=== PATIENT | female | born 1935 | race Caucasian/White ===

== ENCOUNTER 2018-01-18 21:41 | Inpatient (IN) | payer OTHER ==
[~2018-01-18] VITALS: Ht 160 cm; Wt 129.4 kg
[~2018-01-18 21:41] MED LIST: AVAPRO150 MG PO; CEFDINIR300 MG PO; FUROSEMIDE40 MG PO; LIPITOR10 MG PO; METOLAZONE5 MG PO; NORCO 5/3251 TABLET PO; TRAMADOL HCL50 MG PO; TYLENOL REGULA325 MG PO
[2018-01-18 22:51] LABS: INTER. NORMALIZED RATIO 1.5; PTT 28.7 SEC (25-37)
[2018-01-18 22:52] LABS: ALBUMIN 3.1 g/dL (3.2-4.8); CHLORIDE 106 mEq/L (99-109); HEMATOCRIT 16.1 % (36.0-46.0); HEMOGLOBIN 4.6 G/DL (11.9-15.5); MCH 20.4 PG (29.0-34.0); MCHC 28.6 G/DL (30.0-36.0); MCV 71.2 FL (83-99); NRBC (%) 2.8 /100 WBC (0-0); PLATELET COUNT 179 K/uL (156-360); RBC DIS.WIDTH-CV 21.3 % (11.8-14.6); RED BLOOD COUNT 2.26 M/uL (3.80-5.20); SODIUM 137 mEq/L (136-147); WHITE BLOOD COUNT 5.4 K/uL (4.1-10.2)
[2018-01-18 22:54] LABS: GLUCOSE 93 mg/dL (70-99); TOTAL PROTEIN 6.1 g/dL (6.4-8.3)
[2018-01-18 22:56] LABS: TOTAL BILIRUBIN 0.3 mg/dL (0.0-1.0)
[2018-01-18 22:58] LABS: ALKALINE PHOSPHATASE 76 IU/L (3-129); CREATININE 5.4 mg/dL (0.6-1.3); GFR ESTIMATE (CALCULATED) 8 mL/min/
[2018-01-18 22:59] LABS: UREA NITROGEN (BUN) 81 mg/dL (9-23)
[2018-01-18 23:00] LABS: AST (GOT) 18 IU/L (2-34)
[2018-01-18 23:01] LABS: ALT (GPT) 16 IU/L (3-49)
[2018-01-18 23:03] LABS: TROP-I INTERPRETATION NEGATIVE; TROPONIN-I 0.02 ng/mL (0.0-0.30)
[2018-01-18 23:15] LABS: POTASSIUM 6.4 mEq/L (3.7-5.4)
[2018-01-19] VITALS (19 sets, daily range): BP systolic 76–127; BP diastolic 38–88
[2018-01-19 00:08] LABS: HEMATOCRIT 16.3 % (36.0-46.0); HEMOGLOBIN 4.6 G/DL (11.9-15.5); MCH 20.4 PG (29.0-34.0); MCHC 28.2 G/DL (30.0-36.0); MCV 72.1 FL (83-99); NRBC (%) 2.9 /100 WBC (0-0); PLATELET COUNT 190 K/uL (156-360); RBC DIS.WIDTH-CV 21.4 % (11.8-14.6); RBC DIS.WIDTH-SD 55.4 % (39-53); RED BLOOD COUNT 2.26 M/uL (3.80-5.20); WHITE BLOOD COUNT 5.8 K/uL (4.1-10.2)
[2018-01-19 05:37] LABS: CHLORIDE 109 mEq/L (99-109); SODIUM 137 mEq/L (136-147)
[2018-01-19 05:43] LABS: CREATININE 5.1 mg/dL (0.6-1.3); GFR ESTIMATE (CALCULATED) 9 mL/min/
[2018-01-19 05:44] LABS: UREA NITROGEN (BUN) 78 mg/dL (9-23)
[2018-01-19 05:46] LABS: GLUCOSE 49 mg/dL (70-99); POTASSIUM 6.1 mEq/L (3.7-5.4)
[2018-01-19 05:56] LABS: HEMATOCRIT 21.3 % (36.0-46.0); HEMOGLOBIN 6.3 G/DL (11.9-15.5); MCH 22.5 PG (29.0-34.0); MCHC 29.6 G/DL (30.0-36.0); MCV 76.1 FL (83-99); NRBC (%) 1.5 /100 WBC (0-0); PLATELET COUNT 160 K/uL (156-360); RBC DIS.WIDTH-CV 21.5 % (11.8-14.6); RBC DIS.WIDTH-SD 59.7 % (39-53); WHITE BLOOD COUNT 5.4 K/uL (4.1-10.2)
[2018-01-19 06:41] LABS: APPEARANCE TURBID ((CLEAR)); BILIRUBIN NEGATIVE; BLOOD NEGATIVE; COLOR AMBER ((YELLOW)); GLUCOSE (STRIP) NEGATIVE; KETONES NEGATIVE; LEUKOCYTES NEGATIVE; NITRITE NEGATIVE; PROTEIN (STRIP) >=500; SPECIFIC GRAVITY 1.024 (1.000-1.030); UROBILINOGEN 0.2 MG/DL (0.2-1.0)
[2018-01-19 06:59] LABS: AMORPHOUS URATES CRYSTALS 2+; BACTERIA 2+ /HPF; CALCIUM OXALATE CRYSTALS 1+ /HPF; EPITHELIAL CELLS 2+ /HPF; MUCUS NONE SEEN /LPF; RED BLOOD CELLS NONE SEEN /HPF (0-5); UCUL ADDED? YES; WHITE BLOOD CELLS 0-5 /HPF (0-5)
[2018-01-19 08:30] LABS: THYROTROPIN (TSH) 2.1 MIU/L (0.4-5.5)
[2018-01-19] MEDS ORDERED: LO-DOSE ASPIRIN81 M2 PO (09:04)
[2018-01-19] MEDS ORDERED: COREG25 M1 PO (09:05)
[2018-01-19] MEDS ORDERED: BACTRIM,SEPT1 TABLET PO (09:06)
[2018-01-19] MEDS ORDERED: METOLAZONE10 MG PO (09:07)
[2018-01-19] MEDS ORDERED: PROAIR HFA8.5 GM IH (09:22)
[2018-01-19] MEDS ORDERED: EXTRA STRENGTH500 M1 PO (09:22)
[2018-01-19] MEDS ORDERED: SALONPAS PATCH1 EAC1 TD (09:22)
[2018-01-19 13:34] LABS: MCV 77.8 FL (83-99)
[2018-01-19 13:41] LABS: HEMOGLOBIN 8.5 G/DL (11.9-15.5)
[2018-01-19 13:51] LABS: CHLORIDE 104 MEQ/L (99-109); CREATININE 5.1 MG/DL (0.6-1.3); GFR ESTIMATE (CALCULATED) 9 mL/min/; POTASSIUM 5.6 MEQ/L (3.7-5.4); SODIUM 134 MEQ/L (136-147); UREA NITROGEN (BUN) 79 mg/dL (9-23)
[2018-01-19 13:59] LABS: GLUCOSE 124 mg/dL (70-99)
[2018-01-19 18:26] LABS: CHLORIDE 103 MEQ/L (99-109); CREATININE 4.9 MG/DL (0.6-1.3); GFR ESTIMATE (CALCULATED) 9 mL/min/; GLUCOSE 135 mg/dL (70-99); POTASSIUM 5.2 MEQ/L (3.7-5.4); SODIUM 134 MEQ/L (136-147); UREA NITROGEN (BUN) 76 mg/dL (9-23)
[2018-01-19 19:47] LABS: UR CREATININE CONCENTRATION 117.6 MG/DL
[2018-01-20] VITALS (11 sets, daily range): BP systolic 88–138; BP diastolic 50–91
[2018-01-20 04:49] LABS: HEMATOCRIT 27.6 % (36.0-46.0); HEMOGLOBIN 8.6 G/DL (11.9-15.5); MCH 23.9 PG (29.0-34.0); MCHC 31.2 G/DL (30.0-36.0); MCV 76.7 FL (83-99); NRBC (%) 1.2 /100 WBC (0-0); PLATELET COUNT 180 K/uL (156-360); RBC DIS.WIDTH-SD 58.2 % (39-53); WHITE BLOOD COUNT 7.7 K/uL (4.1-10.2)
[2018-01-20 04:54] LABS: BASOPHIL (%) 0.1 % (0-1); EOSINOPHIL (%) 0.3 % (0-5); IMMATURE GRANULOCYTE (%) 0.4 % (0.0-0.7); LYMPHOCYTE (%) 8.2 % (15-42); LYMPHOCYTE COUNT 0.6 K/uL (1.0-2.8); MONOCYTE (%) 5.2 % (3-12); MONOCYTE COUNT 0.4 K/uL (0-0.8); NEUTROPHIL (%) 85.8 % (45-76); NEUTROPHIL COUNT 6.6 K/uL (1.8-6.4)
[2018-01-20 05:00] LABS: CHLORIDE 104 mEq/L (99-109); POTASSIUM 5.9 mEq/L (3.7-5.4); SODIUM 137 mEq/L (136-147)
[2018-01-20 05:03] LABS: GLUCOSE 94 mg/dL (70-99)
[2018-01-20 05:06] LABS: CREATININE 5.5 mg/dL (0.6-1.3); GFR ESTIMATE (CALCULATED) 8 mL/min/
[2018-01-20 05:07] LABS: UREA NITROGEN (BUN) 86 mg/dL (9-23)
[2018-01-20 17:37] LABS: CHLORIDE 102 MEQ/L (99-109); CREATININE 5.3 MG/DL (0.6-1.3); GFR ESTIMATE (CALCULATED) 8 mL/min/; GLUCOSE 76 mg/dL (70-99); SODIUM 140 MEQ/L (136-147); UREA NITROGEN (BUN) 85 mg/dL (9-23)
[2018-01-20 17:38] LABS: POTASSIUM 4.3 MEQ/L (3.7-5.4)
[2018-01-21] VITALS (11 sets, daily range): BP systolic 87–136; BP diastolic 60–92
[2018-01-21 05:45] LABS: CHLORIDE 102 MEQ/L (99-109); CREATININE 5.1 MG/DL (0.6-1.3); GFR ESTIMATE (CALCULATED) 9 mL/min/; GLUCOSE 59 mg/dL (70-99); POTASSIUM 3.7 MEQ/L (3.7-5.4); SODIUM 141 MEQ/L (136-147); UREA NITROGEN (BUN) 80 mg/dL (9-23)
[2018-01-22] VITALS (13 sets, daily range): BP systolic 98–155; BP diastolic 51–85
[2018-01-22 05:19] LABS: HEMATOCRIT 29.1 % (36.0-46.0); HEMOGLOBIN 8.9 G/DL (11.9-15.5); MCH 23.3 PG (29.0-34.0); MCHC 30.6 G/DL (30.0-36.0); MCV 76.2 FL (83-99); NRBC (%) 1.2 /100 WBC (0-0); PLATELET COUNT 167 K/uL (156-360); RED BLOOD COUNT 3.82 M/uL (3.80-5.20); WHITE BLOOD COUNT 10.4 K/uL (4.1-10.2)
[2018-01-22 05:54] LABS: ALBUMIN 3.3 G/DL (3.2-4.8); CHLORIDE 100 MEQ/L (99-109); CREATININE 4.6 MG/DL (0.6-1.3); GFR ESTIMATE (CALCULATED) 10 mL/min/; GLUCOSE 59 mg/dL (70-99); PHOSPHORUS 6.5 mg/dL (2.5-4.9); SODIUM 141 MEQ/L (136-147); UREA NITROGEN (BUN) 76 mg/dL (9-23)
[2018-01-22 05:56] LABS: POTASSIUM 2.7 MEQ/L (3.7-5.4)
[2018-01-22 08:17] LABS: MAGNESIUM 1.9 mg/dl (1.3-2.7)
[2018-01-23] VITALS (31 sets, daily range): BP systolic 47–171; BP diastolic 29–98
[2018-01-23 00:54] LABS: HEMATOCRIT 25.5 % (36.0-46.0)
[2018-01-23 06:11] LABS: BASE EXCESS -7.1 mEq/L (-3 to +3); BICARBONATE 18.7 mEq/L (22-26); PCO2 38 mm Hg (35-45); PO2 95 mm Hg (80-100)
[2018-01-23 06:12] LABS: DEVICE VENT; FI02 100 %; MECHANICAL RATE 18 resp/min; MODE ACVC; PEEP 5 CM/H20; SITE RFEM; TIDAL VOLUME 450 ML; TOTAL RESP RATE 18 resp/min
[2018-01-23 06:26] LABS: HEMATOCRIT 20.3 % (36.0-46.0)
[2018-01-23 06:33] LABS: HEMOGLOBIN 5.8 G/DL (11.9-15.5); MCV 81.2 FL (83-99)
[2018-01-23 06:37] LABS: ALBUMIN 2.3 G/DL (3.2-4.8); CHLORIDE 107 MEQ/L (99-109); CREATININE 4.3 MG/DL (0.6-1.3); GFR ESTIMATE (CALCULATED) 10 mL/min/; GLUCOSE 69 mg/dL (70-99); PHOSPHORUS 6.9 mg/dL (2.5-4.9); SODIUM 145 MEQ/L (136-147); UREA NITROGEN (BUN) 76 mg/dL (9-23)
[2018-01-23 06:38] LABS: POTASSIUM 4.2 MEQ/L (3.7-5.4)
[2018-01-23 07:01] LABS: INTER. NORMALIZED RATIO 1.6
[2018-01-23 07:04] LABS: PTT 32.1 SEC (25-37)
[2018-01-23 08:49] LABS: APPEARANCE CLOUDY ((CLEAR)); BILIRUBIN NEGATIVE; BLOOD MODERATE; COLOR YELLOW ((YELLOW)); GLUCOSE (STRIP) NEGATIVE; KETONES NEGATIVE; LEUKOCYTES MODERATE; NITRITE NEGATIVE; PROTEIN (STRIP) 30; SPECIFIC GRAVITY 1.011 (1.000-1.030); UROBILINOGEN 0.2 MG/DL (0.2-1.0)
[2018-01-23 09:04] LABS: RED BLOOD CELLS 0-5 /HPF (0-5)
[2018-01-23 09:06] LABS: BACTERIA 1+ /HPF; EPITHELIAL CELLS RARE /HPF; MUCUS NONE SEEN /LPF; UCUL ADDED? YES
[2018-01-23 09:07] LABS: COARSE GRANULAR CASTS 0-5 /LPF; HYALINE CASTS RARE /LPF
[2018-01-23 09:08] LABS: AMORPHOUS URATES CRYSTALS 2+
[2018-01-23 09:23] LABS: BASE EXCESS -4.9 mEq/L (-3 to +3); BICARBONATE 18.2 mEq/L (22-26)
[2018-01-23 09:24] LABS: DEVICE VENT; FI02 100 %; MECHANICAL RATE 18 resp/min; MODE AC; PCO2 28 mm Hg (35-45); PEEP 5 CM/H20; PO2 441 mm Hg (80-100); SITE ALINE; TIDAL VOLUME 450 ML; TOTAL RESP RATE 18 resp/min; pH 7.42 (7.35-7.45)
[2018-01-23 12:43] LABS: BASOPHIL (%) 0.1 % (0-1); EOSINOPHIL (%) 0.1 % (0-5); HEMATOCRIT 17.8 % (36.0-46.0); IMMATURE GRANULOCYTE (%) 1.1 % (0.0-0.7); LYMPHOCYTE (%) 4.8 % (15-42); LYMPHOCYTE COUNT 0.5 K/uL (1.0-2.8); MCH 27.3 PG (29.0-34.0); MCHC 33.1 G/DL (30.0-36.0); MCV 82.4 FL (83-99); MONOCYTE (%) 7.8 % (3-12); MONOCYTE COUNT 0.8 K/uL (0-0.8); NEUTROPHIL (%) 86.1 % (45-76); NEUTROPHIL COUNT 8.9 K/uL (1.8-6.4); NRBC (%) 5.3 /100 WBC (0-0); RBC DIS.WIDTH-CV 17.7 % (11.8-14.6); RBC DIS.WIDTH-SD 53.7 % (39-53); WHITE BLOOD COUNT 10.3 K/uL (4.1-10.2)
[2018-01-23 12:45] LABS: HEMOGLOBIN 5.9 G/DL (11.9-15.5); RED BLOOD COUNT 2.16 M/uL (3.80-5.20)
[2018-01-23 13:00] LABS: INTER. NORMALIZED RATIO 1.6
[2018-01-23 13:02] LABS: ANISOCYTOSIS 1+; HYPOCHROMASIA 1+; IMM.PLATELET FRACTION 3.6 (1-7); MICROCYTOSIS 1+; PLAT.SUFFICIENCY DECREASED; PLATELET COUNT 52 K/uL (156-360)
[2018-01-23 13:03] LABS: PTT 38.3 SEC (25-37)
[2018-01-23 14:37] LABS: BASOPHIL (%) 0.3 % (0-1); EOSINOPHIL (%) 0.1 % (0-5); HEMOGLOBIN 10.2 G/DL (11.9-15.5); IMMATURE GRANULOCYTE (%) 1.4 % (0.0-0.7); LYMPHOCYTE COUNT 0.8 K/uL (1.0-2.8); MCH 29.1 PG (29.0-34.0); MCHC 32.9 G/DL (30.0-36.0); MCV 88.6 FL (83-99); MONOCYTE (%) 10.4 % (3-12); MONOCYTE COUNT 1.3 K/uL (0-0.8); NEUTROPHIL (%) 80.8 % (45-76); NEUTROPHIL COUNT 9.7 K/uL (1.8-6.4); NRBC (%) 8.1 /100 WBC (0-0); RBC DIS.WIDTH-CV 15.7 % (11.8-14.6); RBC DIS.WIDTH-SD 49.7 % (39-53)
[2018-01-23 14:51] LABS: IMM.PLATELET FRACTION 5.9 (1-7); PLAT.SUFFICIENCY VERY DECREASED; PLATELET COUNT 34 K/uL (156-360)
[2018-01-23 16:51] LABS: HEMOGLOBIN 10.3 G/DL (11.9-15.5); MCH 29.2 PG (29.0-34.0); MCHC 34.3 G/DL (30.0-36.0); NRBC (%) 12.8 /100 WBC (0-0); RBC DIS.WIDTH-CV 15.6 % (11.8-14.6); RBC DIS.WIDTH-SD 47.3 % (39-53); RED BLOOD COUNT 3.53 M/uL (3.80-5.20)
[2018-01-23 17:02] LABS: PLATELET COUNT 132 K/uL (156-360)
[2018-01-23 18:33] LABS: HEMATOCRIT 35.3 % (36.0-46.0); HEMOGLOBIN 11.7 G/DL (11.9-15.5); MCV 85.9 FL (83-99)
[2018-01-23 19:12] LABS: ALBUMIN 2.2 G/DL (3.2-4.8); CHLORIDE 114 MEQ/L (99-109); PHOSPHORUS 7.8 mg/dL (2.5-4.9); POTASSIUM 3.8 MEQ/L (3.7-5.4); SODIUM 147 MEQ/L (136-147); UREA NITROGEN (BUN) 62 mg/dL (9-23)
[2018-01-23 19:43] LABS: CREATININE 3.4 MG/DL (0.6-1.3); GFR ESTIMATE (CALCULATED) 14 mL/min/; GLUCOSE 51 mg/dL (70-99)
[2018-01-24 00:01] VITALS: BP 101/88
[2018-01-24 01:38] LABS: HEMATOCRIT 43.5 % (36.0-46.0); MCV 84.1 FL (83-99)
[2018-01-24 01:39] LABS: HEMOGLOBIN 15.3 G/DL (11.9-15.5)
[2018-01-24 04:01] VITALS: BP 104/82
[2018-01-24 04:55] LABS: INTER. NORMALIZED RATIO 1.6
[2018-01-24 04:57] LABS: HEMATOCRIT 42.4 % (36.0-46.0); HEMOGLOBIN 15.1 G/DL (11.9-15.5); MCH 29.7 PG (29.0-34.0); MCHC 35.6 G/DL (30.0-36.0); MCV 83.5 FL (83-99); NRBC (%) 7.6 /100 WBC (0-0); RBC DIS.WIDTH-CV 15.3 % (11.8-14.6); RBC DIS.WIDTH-SD 46.2 % (39-53); WHITE BLOOD COUNT 20.3 K/uL (4.1-10.2)
[2018-01-24 05:01] LABS: ALBUMIN 2.2 g/dL (3.2-4.8)
[2018-01-24 05:02] LABS: POTASSIUM 3.7 mEq/L (3.7-5.4); SODIUM 144 mEq/L (136-147)
[2018-01-24 05:07] LABS: ALKALINE PHOSPHATASE 79 IU/L (3-129); PHOSPHORUS 7.1 mg/dL (2.5-4.9)
[2018-01-24 05:08] LABS: CREATININE 3.5 mg/dL (0.6-1.3); GFR ESTIMATE (CALCULATED) 13 mL/min/
[2018-01-24 05:09] LABS: UREA NITROGEN (BUN) 66 mg/dL (9-23)
[2018-01-24 05:18] LABS: CHLORIDE 116 mEq/L (99-109); GLUCOSE 94 mg/dL (70-99)
[2018-01-24 05:19] LABS: ALT (GPT) 1057 IU/L (3-49); AST (GOT) 2140 IU/L (2-34); TOTAL BILIRUBIN 1.2 mg/dL (0.0-1.0); TOTAL PROTEIN 3.7 g/dL (6.4-8.3)
[2018-01-24 05:34] LABS: RED BLOOD COUNT 5.08 M/uL (3.80-5.20)
[2018-01-24 05:41] LABS: ABS NEUTROPHIL COUNT 17.9; ANISOCYTOSIS 1+; BAND NEUTROPHILS 40.8 % (0-8.0); BURR CELLS 2+; EOSINOPHIL ABS CT 0; MACROCYTES 1+; MONOCYTES 3.1 % (0-9.0); MYELOCYTES 0.5 %; PLAT.SUFFICIENCY DECREASED; POIKILOCYTOSIS 3+; SEG.NEUTROPHILS 47.6 % (46.0-76.0); SMUDGE CELLS 39.5
[2018-01-24 05:45] LABS: PLATELET COUNT 91 K/uL (156-360)
[2018-01-24 06:02] LABS: BASE EXCESS -10.8 mEq/L (-3 to +3); BICARBONATE 14.6 mEq/L (22-26); CARBOXY HGB 1.9 % (0-5); METHEMOGLOBIN 1.4 % (0-1.5); PCO2 31 mm Hg (35-45); PO2 69 mm Hg (80-100); pH 7.28 (7.35-7.45)
[2018-01-24 06:03] LABS: DEVICE VENT; FI02 50 %; MECHANICAL RATE 18 resp/min; MODE AC; PEEP 5 CM/H20; SITE A-LINE; TIDAL VOLUME 450 ML; TOTAL RESP RATE 18 resp/min
[2018-01-24 13:36] VITALS: BP 87/59
[2018-01-25 05:30] LABS: ALBUMIN 2.3 g/dL (3.2-4.8)
[2018-01-25 05:31] LABS: CHLORIDE 113 mEq/L (99-109); SODIUM 143 mEq/L (136-147)
[2018-01-25 05:33] LABS: GLUCOSE 69 mg/dL (70-99)
[2018-01-25 05:37] LABS: GFR ESTIMATE (CALCULATED) 11 mL/min/; PHOSPHORUS 10.9 mg/dL (2.5-4.9)
[2018-01-25 05:38] LABS: UREA NITROGEN (BUN) 62 mg/dL (9-23)
== END 2018-01-25 11:00 | DRG 208 ==
LOC: EME → EDBD 21:41 → EME 21:41 → 4WEST 01-19 07:08 → EDOF 01-19 07:08 → ENRESERV 01-19 07:12 → EDOF 01-19 07:36 → ENRESERV 01-19 07:56 → 4WEST 01-19 08:32 → ENRESERV 01-22 13:06 → 5SOUTH 01-22 14:49 → 4WEST 01-23 05:36 → ENRESERV 01-23 05:43 → 4WEST 01-23 05:44
PROVIDERS: Emergency Medicine Emergency Medical Services; Hospitalist; Internal Medicine; Internal Medicine Critical Care Medicine; Internal Medicine Gastroenterology; Surgery
PROC: 30233N1 Transfusion of Nonautologous Red Blood Cells into Peripheral Vein, Percutaneous Approach (ICD-10-PCS; 2018-01-19)
PROC: 30233K1 Transfusion of Nonautologous Frozen Plasma into Peripheral Vein, Percutaneous Approach (ICD-10-PCS; 2018-01-19)
PROC: 30233R1 Transfusion of Nonautologous Platelets into Peripheral Vein, Percutaneous Approach (ICD-10-PCS; 2018-01-19)
PROC: 04HY32Z Insertion of Monitoring Device into Lower Artery, Percutaneous Approach (ICD-10-PCS; principal; 2018-01-23)
PROC: 0DJ08ZZ Inspection of Upper Intestinal Tract, Via Natural or Artificial Opening Endoscopic (ICD-10-PCS; principal; 2018-01-23)
PROC: 06HY33Z Insertion of Infusion Device into Lower Vein, Percutaneous Approach (ICD-10-PCS; principal; 2018-01-23)
PROC: 0BH17EZ Insertion of Endotracheal Airway into Trachea, Via Natural or Artificial Opening (ICD-10-PCS; principal; 2018-01-23)
PROC: 5A1945Z Respiratory Ventilation, 24-96 Consecutive Hours (ICD-10-PCS; principal; 2018-01-23)
DX: J96.01 Acute respiratory failure with hypoxia (principal); K92.2 Gastrointestinal hemorrhage, unspecified; N17.9 Acute kidney failure, unspecified; D62 Acute posthemorrhagic anemia; R57.8 Other shock; I12.9 Hypertensive chronic kidney disease with stage 1 through stage 4 chronic kidney disease, or unspecified chronic kidney disease; N18.4 Chronic kidney disease, stage 4 (severe); E87.5 Hyperkalemia; E87.6 Hypokalemia; K44.9 Diaphragmatic hernia without obstruction or gangrene; E87.2 Acidosis; K92.0 Hematemesis; Z68.42 Body mass index [BMI] 45.0-49.9, adult; E66.9 Obesity, unspecified; E83.51 Hypocalcemia; D68.9 Coagulation defect, unspecified; Z66 Do not resuscitate; E83.39 Other disorders of phosphorus metabolism; E78.5 Hyperlipidemia, unspecified; E87.70 Fluid overload, unspecified; I27.20 Pulmonary hypertension, unspecified; D69.6 Thrombocytopenia, unspecified; K75.89 Other specified inflammatory liver diseases; R18.8 Other ascites; E86.1 Hypovolemia; R74.8 Abnormal levels of other serum enzymes; M19.90 Unspecified osteoarthritis, unspecified site; Z96.653 Presence of artificial knee joint, bilateral
CPT/HCPCS: 36600; 71045; 74176; 76770; 80048; 80048 91; 80053; 80069; 81003; 82570; 82803; 82948; 83605; 83735; 83880; 84300; 84443; 84484; 85014; 85018; 85025; 85025 91; 85027; 85610; 85730; 86850; 86900; 86901; 86920; 87040; 87070; 87086; 87205; 87641; 89190; 93005; 93306; 94002; 94003; 94640; 94640 76; 94760; 94799; 99202; 99281; 99285; C1751; C1753; C1894; C9113; J0610; J1265; J1630; J1644; J1940; J2354; J2405; J2543; J2597; J2704; J2765; J3010; J3480; J7030; J7040; J7050; J7070; J7120; P9016; P9017; P9035; P9045